=== PATIENT | male | born 1960 | race Caucasian/White ===

== ENCOUNTER 2016-10-22 09:09 | Emergency (ER) | payer MEDICAID, OTHER ==
[~2016-10-22] VITALS: Ht 177.8 cm; Wt 110.0 kg
[2016-10-22] MEDS ORDERED: KETOROLAC 30MG/ML VIAL IV ONE (09:30)
[2016-10-22] MEDS ORDERED: LISINOPRIL 20MG TABLET PO ONE (11:15)
[2016-10-22] MEDS ORDERED: AMLODIPINE 10MG TABLET PO ONE (11:15)
[2016-10-22 12:07] VITALS: BP 151/97
== END 2016-10-22 12:31 | disposition home or self-care (01) ==
LOC: ER 09:19
DX: S16.1XXA Strain of muscle, fascia and tendon at neck level, initial encounter (principal); I10 Essential (primary) hypertension; V49.88XA Car occupant (driver) (passenger) injured in other specified transport accidents, initial encounter; Y93.89 Activity, other specified; Y92.89 Other specified places as the place of occurrence of the external cause; Y99.8 Other external cause status
CPT/HCPCS: 72125; 96374; 99284; J1885; Z7610